=== PATIENT | male | born 1950 | race Caucasian/White ===

== ENCOUNTER → 2022-03-03 | Outpatient (CLI) | payer MEDICARE, BC, OTHER ==
[2022-03-03 08:10] LABS: BASO # 0.02 K/mm3 (0.02-0.10); EOS # 0.31 K/mm3 (0.04-0.40); EOS % 4.1 % (0.0-4.0); HEMATOCRIT 47.2 % (42.0-52.0); HEMOGLOBIN 15.5 g/dL (13.5-18.0); LYMPH# 2.37 K/mm3 (1.50-4.00); MEAN CELL VOLUME 90 fl (78-100); MEAN CORPUSCULAR HEMOGLOBIN 30 pg (27-31); MEAN CORPUSCULAR HGB CONC 33 g/dL (33-37); MEAN PLATELET VOLUME 8.8 fl (7.4-10.4); MONO # 0.78 K/mm3 (0.20-0.80); NEU # 4.13 K/mm3 (1.40-6.50); PLATELET COUNT 318 K/mm3 (130-400); RED BLOOD COUNT 5.25 M/mm3 (4.20-5.60); WHITE BLOOD COUNT 7.6 K/mm3 (4.8-10.8)
[2022-03-03 08:33] LABS: ALBUMIN 4.2 g/dL (3.4-4.8); POTASSIUM 4.1 mmol/L (3.5-5.1)
[2022-03-03 08:34] LABS: CALCIUM 9.5 mg/dL (8.3-10.5)
[2022-03-03 08:35] LABS: TOTAL PROTEIN 7.2 g/dL (6.2-8.1)
[2022-03-03 08:37] LABS: TOTAL BILIRUBIN 0.8 mg/dL (0.2-1.2)
== END ==
LOC: LAB 07:44
PROVIDERS: Nurse Practitioner
DX: Z12.5 Encounter for screening for malignant neoplasm of prostate (principal); R03.0 Elevated blood-pressure reading, without diagnosis of hypertension